=== PATIENT | female | born 1935 | race Caucasian/White ===

== ENCOUNTER 2021-04-18 10:14 | Inpatient (IN) | payer OTHER ==
[2021-04-18] MEDS ORDERED: FENTANYL CITR 100 MCG/2 ML ONE (11:35)
[2021-04-18] MEDS ORDERED: ONDANSETRON 4 MG/2 ML VIAL ONE (11:35)
--- NOTE | 2021-04-18 11:39 | RAD REPORT ---
EXAM DESCRIPTION: RAD - Hip Right 2 View - 04/18/2021 11:32 am CLINICAL HISTORY: PAIN COMPARISON: No comparisons FINDINGS: Displaced right subcapital femoral neck fracture with superior and lateral displacement. N o dislocation. IMPRESSION: Displaced right subcapital femoral neck fracture.
--- NOTE | 2021-04-18 11:55 | RAD REPORT ---
EXAM DESCRIPTION: RAD - Chest Single View - 04/18/2021 11:32 am CLINICAL HISTORY: pre op Chest pain. COMPARISON: No comparisons FINDINGS: Portable technique limits examination quality. The lungs are grossly clear. The heart is normal in size. No displaced fractures. IMPRESSION: No acute intrathoracic process suspected.
[2021-04-18 12:04] LABS: Absolute Lymphocytes (CBC) 0.8 K/uL (0.7-4.9); Basophils % 0.3 % (0-1.3); Hematocrit 40.8 % (36.0-45.0); Lymphocytes % 8.8 % (15.3-44.8); MPV 8.7 fL (7.6-11.3); RBC Red Blood Cell Count 4.42 M/uL (3.86-4.86)
[2021-04-18 12:08] LABS: Protime INR 1.05
[2021-04-18 12:18] LABS: ALT/SGPT 23 U/L (12-78); AST/SGOT 19 U/L (15-37); Albumin 3.4 g/dL (3.4-5.0); Alkaline Phosphatase 80 U/L (45-117); BUN Blood Urea Nitrogen 13 mg/dL (7-18); Bicarbonate 26 mmol/L (21-32); Bilirubin Direct 0.2 mg/dL (0-0.2); Bilirubin Total 0.7 mg/dL (0.2-1.0); Glucose Level 166 mg/dL (74-106); Magnesium 2.1 mg/dL (1.8-2.4); NT PRO-BNP 662 pg/mL (<450); Potassium 3.5 mmol/L (3.5-5.1); Protein, Total 7.5 g/dL (6.4-8.2); Sodium Level 138 mmol/L (136-145); Troponin (Emerg Dept Use Only) < 0.02 ng/mL (0.0-0.045)
--- NOTE | 2021-04-18 12:39 | ER ---
Nurse's Notes [facility] Name: Lissy Jansen Age: 85 yrs Sex: Female : 1935 Arrival Date: 04/18/2021 Time: 10:23 Bed 15 Private MD: Diagnosis: Displaced fracture of base of neck of right femur Presentation: 04/18 10:56 Chief complaint: Patient states: R sided hip pain after falling from standing position ss yesterday. Coronavirus screen: Client denies travel out of the [place] in the last 14 days. Ebola Screen: Patient denies exposure to infectious person. Patient denies travel to an Ebola-affected area in the 21 days before illness onset. Initial Sepsis Screen: Does the patient meet any 2 criteria? No. Patient's initial sepsis screen is negative. Does the patient have a suspected source of infection? No. Patient's initial sepsis screen is negative. Risk Assessment: Do you want to hurt yourself or someone else? Patient reports no desire to harm self or others. Onset of symptoms was April 17, 2021. 10:56 Method Of Arrival: Ambulatory ss 10:56 Acuity: LIDIA 3 ss Historical: - Allergies: 10:57 No Known Allergies; ss - Immunization history:: Adult Immunizations unknown, Client reports having NOT received the Covid vaccine. - Social history:: Smoking status: Patient denies any tobacco usage or history of. Screenin:08 Abuse screen: Denies threats or abuse. Nutritional screening: No deficits noted. vg1 Tuberculosis screening: No symptoms or risk factors identified. Fall Risk Fall in past 12 months (25 points). No secondary diagnosis (0 pts). IV access (20 points). Ambulatory Aid- Crutches/Cane/Walker (15 pts). Gait- Impaired (20 pts.). Mental Status- Oriented to own ability (0 pts). Total Hurley Fall Scale indicates No Risk (0-24 pts). Assessment: 11:08 General: Appears in no apparent distress. uncomfortable, Behavior is calm, cooperative. vg1 Pain: Complains of pain in right hip Pain currently is 6 out of 10 on a pain scale. Pain began 1 day ago. Neuro: Level of Consciousness is awake, alert, obeys commands, Oriented to person, place, time, situation. Cardiovascular: Capillary refill < 3 seconds in bilateral toes Patient's skin is warm and dry. Pulses are palpable in right dorsalis pedis artery and left dorsalis pedis artery. Respiratory: Airway is patent Respiratory effort is even, unlabored. GI: No signs and/or symptoms were reported involving the gastrointestinal system. : No signs and/or symptoms were reported regarding the genitourinary system. EENT: No signs and/or symptoms were reported regarding the EENT system. Derm: Skin is intact, Skin is pink, warm \T\ dry. Musculoskeletal: Range of motion: limited in right hip. 11:55 Reassessment: approximately five minutes after administration of Fentanyl pt O2 DeSat vg1 to 83%. Placed pt on O2 at 2L. Pt now back at 100%. Provider notified. 11:58 Reassessment: Provider at bedside. vg1 13:06 Reassessment: Patient appears in no apparent distress at this time. No changes from vg1 previously documented assessment. Patient and/or family updated on plan of care and expected duration. Pain level reassessed. Patient is alert, oriented x 3, equal unlabored respirations, skin warm/dry/pink. Patient denies pain at this time. 17:31 Reassessment: Spoke with Dr Claudio via phone call to verify about medication order of vg1 Lovenox, per Dr Claudio, stated to hold Lovenox, medication can be administered after sx. 17:48 Reassessment: Patient appears in no apparent distress at this time. Patient and/or vg1 family updated on plan of care and expected duration. Pain level reassessed. Patient is alert, oriented x 3, equal unlabored respirations, skin warm/dry/pink. Denies chest pain, pressure and/or discomfort. 18:14 Reassessment: T4f and TSH blood draw done and sent to lab. vg1 Vital Signs: 11:06 BP 205 / 82; Pulse 85; Resp 16; Temp 98.3; Pulse Ox 100% ; Weight 63.5 kg; Height 4 ft. vg1 10 in. (147.32 cm); Pain 6/10; 11:30 BP 205 / 80; Pulse 78; Resp 20; Pulse Ox 100% on R/A; vg1 12:00 BP 199 / 78; Pulse 75; Resp 14; Pulse Ox 100% on 2 lpm NC; vg1 12:30 BP 196 / 71; Pulse 80; Resp 18; Pulse Ox 100% on 2 lpm NC; vg1 13:00 BP 182 / 75; Pulse 77; Resp 20; Pulse Ox 100% on 2 lpm NC; vg1 13:30 BP 190 / 71; Pulse 76; Resp 16; Pulse Ox 100% ; vg1 14:00 BP 195 / 71; Pulse 78; Resp 22; Pulse Ox 100% ; vg1 14:30 BP 192 / 66; Pulse 87; Resp 16; Pulse Ox 100% ; vg1 15:00 BP 192 / 66; Pulse 87; Resp 16; Pulse Ox 100% ; vg1 15:30 BP 145 / 128; Pulse 80; Resp 18; Pulse Ox 93% ; vg1 16:00 BP 149 / 103; Pulse 140; Resp 20; Pulse Ox 93% ; vg1 16:25 BP 153 / 91; Pulse 146; vg1 16:28 BP 163 / 84; Pulse 146; vg1 16:32 BP 157 / 78; Pulse 131; vg1 16:35 BP 151 / 107; Pulse 140; vg1 16:38 BP 163 / 78; Pulse 123; vg1 16:39 BP 154 / 73; Pulse 116; vg1 16:41 BP 149 / 81; Pulse 121; vg1 16:43 BP 161 / 85; Pulse 130; vg1 16:45 BP 146 / 83; Pulse 121; vg1 17:00 BP 144 / 106; Pulse 116; Resp 18; Pulse Ox 99% ; vg1 17:15 BP 122 / 98; Pulse 119; Resp 22; Pulse Ox 98% ; vg1 17:30 BP 118 / 103; Pulse 128; Resp 24; Pulse Ox 97% ; vg1 17:42 BP 136 / 79; Pulse 129; Resp 18; Pulse Ox 96% ; vg1 17:45 BP 146 / 83; Pulse 120; Resp 20; Pulse Ox 97% ; vg1 18:00 BP 145 / 66; Pulse 111; vg1 18:15 BP 138 / 96; Pulse 104; Resp 22; Pulse Ox 98% ; vg1 18:45 BP 159 / 83; Pulse 111; Resp 20; Pulse Ox 99% ; vg1 19:15 BP 153 / 83; Pulse 92; Resp 22; Pulse Ox 100% ; vg1 20:00 BP 144 / 68; Pulse 104; Resp 20; Temp 98.1; Pulse Ox 99% ; vg1 20:00 BP 144 / 68; Pulse 85; vg1 11:06 Body Mass Index 29.26 (63.50 kg, 147.32 cm) vg1 ED Course: 10:23 Patient arrived in ED. ds1 10:37 Brant Estevez PA is PHCP. jr8 10:37 Gage Yadav MD is Attending Physician. jr8 10:53 Sarah Murillo, RN is Primary Nurse. vg1 10:57 Triage completed. ss 10:57 Arm band placed on right wrist. ss 11:10 Patient has correct armband on for positive identification. Bed in low position. Call vg1 light in reach. Side rails up X2. Adult w/ patient. 11:32 XRAY Hip RIGHT 2 view In Process Unspecified. EDMS 11:32 XRAY Chest (1 view) In Process Unspecified. EDMS 11:38 Inserted saline lock: 22 gauge in right forearm, using aseptic technique. Blood em1 collected. Missed attempt(s): 22 gauge in right wrist. Bleeding controlled, band aid applied, catheter tip intact. 12:37 Sanya Crowder DO is Hospitalizing Provider. jr8 13:48 COVID swab sent to lab. vg1 16:01 Wu cath inserted, using sterile technique, 18 Fr., by ED staff, balloon inflated, to vg1 gravity drainage, urine specimen collected. other Completed by Yuko ANDERSON. 19:11 Primary Nurse role handed off by Sarah Murillo, RN ss 19:33 Sarah Murillo, RN is Primary Nurse. vg1 19:48 No provider procedures requiring assistance completed. Patient admitted, IV remains in vg1 place. Administered Medications: 11:42 Drug: Zofran (Ondansetron) 4 mg Route: IVP; Site: right wrist; vg1 17:25 Follow up: Response: No adverse reaction vg1 11:44 Drug: fentaNYL (PF) 50 mcg Route: IVP; Site: right wrist; vg1 11:59 Follow up: Response: Marked relief of symptoms; Pain is decreased vg1 16:25 Drug: Lopressor (metoprolol) 5 mg Route: IVP; Site: right wrist; vg1 16:31 Drug: Lopressor (metoprolol) 5 mg Route: IVP; Site: right wrist; vg1 16:36 Drug: Lopressor (metoprolol) 5 mg Route: IVP; Site: right wrist; vg1 16:45 Follow up: BP 146 / 83; Pulse 121 bpm vg1 17:43 Drug: Digoxin 0.5 mg Route: IVP; Site: right wrist; vg1 18:00 Follow up: BP 145 / 66; Pulse 111 bpm vg1 18:27 Not Given (Other Intervention Used): Lovenox (enoxaparin) 1 mg/kg Sub-Q once la1 19:03 Drug: Heparin (TN-Bolus No thrombolytic) - HEParin 60 units/kg {Co-Signature: holden (Megan Robin RN).} Route: IVP; Site: right wrist; 20:10 Follow up: Response: No adverse reaction vg1 19:05 Drug: Heparin (TN Drip) 12 units/kg/hr - (HEParin 92205 units, D5W 500 ml) vg1 {Co-Signature: holden (Megan Robin RN).} Route: IV; Rate: calculated rate; Site: right wrist; 20:10 Follow up: IV Status: Infusion continued upon admission vg1 19:07 Drug: Metoprolol 50 mg Route: PO; vg1 20:00 Follow up: BP 144 / 68; Pulse 85 bpm; Response: No adverse reaction vg1 Outcome: 12:38 Decision to Hospitalize by Provider. nikolay 19:47 Admitted to Tele accompanied by tech, via stretcher, room 212, with chart, Report vg1 called to JUSTIN Guzman 19:47 Condition: stable 19:47 Instructed on the need for admit. 20:08 Patient left the ED. vg1 Signatures: Dispatcher [employer] [facility] Adrienne Diggs dsJosue Jovel emCaryn Wright RN RN ss Roszak, Josh, PA PA jr8 Sarah Murillo RN RN vg1 Kavon Orourke SOFTWARE APPLICATIONS [facility] Megan Robin RN, ea Corrections: (The following items were deleted from the chart) 17:26 16:45 Lopressor (metoprolol) 5 mg IVP in right wrist vg1 vg1
--- NOTE | 2021-04-18 12:39 | EDPHYS ---
Physician Documentation [facility] Name: Lissy Jansen Age: 85 yrs Sex: Female : 1935 Arrival Date: 04/18/2021 Time: 10:23 Bed 15 Private MD: ED Physician Gage Yadav HPI: 04/18 12:25 This 85 yrs old Female presents to ER via Ambulatory with complaints of Fall jr8 Injury, Hip Injury. 12:25 Details of fall: The patient fell from an upright position, while standing. Onset: The jr8 symptoms/episode began/occurred acutely, last night. Associated injuries: The patient sustained right leg. Severity of symptoms: At their worst the symptoms were moderate, in the emergency department the symptoms are unchanged. The patient has not experienced similar symptoms in the past. The patient has not recently seen a physician. Stated that she had mechanical fall that was accidental in nature last night. Since then has not been able to ambulate. Patient came in POV by assistance of family. Patient had obvious external rotation or shortening of the right leg.. Historical: - Allergies: 10:57 No Known Allergies; ss - Immunization history:: Adult Immunizations unknown, Client reports having NOT received the Covid vaccine. - Social history:: Smoking status: Patient denies any tobacco usage or history of. ROS: 12:33 Eyes: Negative for injury, pain, redness, and discharge, ENT: Negative for injury, jr8 pain, and discharge, Neck: Negative for injury, pain, and swelling, Cardiovascular: Negative for chest pain, palpitations, and edema, Respiratory: Negative for shortness of breath, cough, wheezing, and pleuritic chest pain, Abdomen/GI: Negative for abdominal pain, nausea, vomiting, diarrhea, and constipation, Back: Negative for injury and pain, Skin: Negative for injury, rash, and discoloration, Neuro: Negative for headache, weakness, numbness, tingling, and seizure. 12:33 MS/extremity: Positive for decreased range of motion, pain, tenderness, of the right leg. Exam: 12:33 Constitutional: This is a well developed, well nourished patient who is awake, alert, jr8 and in no acute distress. Neck: Trachea midline, no thyromegaly or masses palpated, and no cervical lymphadenopathy. Supple, full range of motion without nuchal rigidity, or vertebral point tenderness. No Meningismus. Cardiovascular: Regular rate and rhythm with a normal S1 and S2. No gallops, murmurs, or rubs. Normal PMI, no JVD. No pulse deficits. Respiratory: Lungs have equal breath sounds bilaterally, clear to auscultation and percussion. No rales, rhonchi or wheezes noted. No increased work of breathing, no retractions or nasal flaring. Abdomen/GI: Soft, non-tender, with normal bowel sounds. No distension or tympany. No guarding or rebound. No evidence of tenderness throughout. Back: No spinal tenderness. No costovertebral tenderness. Full range of motion. Skin: Warm, dry with normal turgor. Normal color with no rashes, no lesions, and no evidence of cellulitis. Neuro: Awake and alert, GCS 15, oriented to person, place, time, and situation. Cranial nerves II-XII grossly intact. Motor strength 5/5 in all extremities. Sensory grossly intact. 12:33 Musculoskeletal/extremity: Extremities: grossly normal except: noted in the right leg: Patient has externally rotated right leg with about 2 inches of shortening noted. 2+ pedal and posterior tibial pulses present with normal sensation. Patient able to flex and extend foot and can wiggle toes without any problem. Decreased range of motion to hip secondary to obvious deformity. Rest of extremities unremarkable.. Vital Signs: 11:06 BP 205 / 82; Pulse 85; Resp 16; Temp 98.3; Pulse Ox 100% ; Weight 63.5 kg; Height 4 ft. vg1 10 in. (147.32 cm); Pain 6/10; 11:30 BP 205 / 80; Pulse 78; Resp 20; Pulse Ox 100% on R/A; vg1 12:00 BP 199 / 78; Pulse 75; Resp 14; Pulse Ox 100% on 2 lpm NC; vg1 12:30 BP 196 / 71; Pulse 80; Resp 18; Pulse Ox 100% on 2 lpm NC; vg1 13:00 BP 182 / 75; Pulse 77; Resp 20; Pulse Ox 100% on 2 lpm NC; vg1 13:30 BP 190 / 71; Pulse 76; Resp 16; Pulse Ox 100% ; vg1 14:00 BP 195 / 71; Pulse 78; Resp 22; Pulse Ox 100% ; vg1 14:30 BP 192 / 66; Pulse 87; Resp 16; Pulse Ox 100% ; vg1 15:00 BP 192 / 66; Pulse 87; Resp 16; Pulse Ox 100% ; vg1 15:30 BP 145 / 128; Pulse 80; Resp 18; Pulse Ox 93% ; vg1 16:00 BP 149 / 103; Pulse 140; Resp 20; Pulse Ox 93% ; vg1 16:25 BP 153 / 91; Pulse 146; vg1 16:28 BP 163 / 84; Pulse 146; vg1 16:32 BP 157 / 78; Pulse 131; vg1 16:35 BP 151 / 107; Pulse 140; vg1 16:38 BP 163 / 78; Pulse 123; vg1 16:39 BP 154 / 73; Pulse 116; vg1 16:41 BP 149 / 81; Pulse 121; vg1 16:43 BP 161 / 85; Pulse 130; vg1 16:45 BP 146 / 83; Pulse 121; vg1 17:00 BP 144 / 106; Pulse 116; Resp 18; Pulse Ox 99% ; vg1 17:15 BP 122 / 98; Pulse 119; Resp 22; Pulse Ox 98% ; vg1 17:30 BP 118 / 103; Pulse 128; Resp 24; Pulse Ox 97% ; vg1 17:42 BP 136 / 79; Pulse 129; Resp 18; Pulse Ox 96% ; vg1 17:45 BP 146 / 83; Pulse 120; Resp 20; Pulse Ox 97% ; vg1 18:00 BP 145 / 66; Pulse 111; vg1 18:15 BP 138 / 96; Pulse 104; Resp 22; Pulse Ox 98% ; vg1 18:45 BP 159 / 83; Pulse 111; Resp 20; Pulse Ox 99% ; vg1 19:15 BP 153 / 83; Pulse 92; Resp 22; Pulse Ox 100% ; vg1 20:00 BP 144 / 68; Pulse 104; Resp 20; Temp 98.1; Pulse Ox 99% ; vg1 20:00 BP 144 / 68; Pulse 85; vg1 11:06 Body Mass Index 29.26 (63.50 kg, 147.32 cm) vg1 MDM: 10:37 Patient medically screened. 8 12:33 Data reviewed: vital signs, nurses notes, lab test result(s), EKG, radiologic studies, jr8 plain films. Data interpreted: Pulse oximetry: on room air is 100 %. Interpretation: normal. Counseling: I had a detailed discussion with the patient and/or guardian regarding: the historical points, exam findings, and any diagnostic results supporting the discharge/admit diagnosis, lab results, the need for further work-up and treatment in the hospital. ED course: Dr. Hernández consulted and plans to take patient to surgery this evening. Patient has remained n.p.o. since last night. Patient denies any blood thinners.. 04/18 10:50 Order name: CBC with Diff; Complete Time: 12:32 8 04/18 10:50 Order name: Basic Metabolic Panel; Complete Time: 12:32 8 04/18 10:50 Order name: Protime (+inr); Complete Time: 12:32 8 04/18 10:50 Order name: Ptt, Activated; Complete Time: 12:8 04/18 10:50 Order name: LFT's; Complete Time: 12:32 04/18 10:50 Order name: Magnesium; Complete Time: 12:32 8 04/18 10:50 Order name: NT PRO-BNP; Complete Time: 12:32 8 04/18 10:50 Order name: Troponin (emerg Dept Use Only); Complete Time: 12:32 04/18 12:39 Order name: COVID-19 : Document "Date of Symptom Onset" if Symptomatic. bd 04/18 16:00 Order name: SARS-COV-2 RT PCR; Complete Time: 16:25 EDMS 04/18 16:05 Order name: Urine Dipstick-Ancillary; Complete Time: 16:25 EDMS 04/18 17:00 Order name: TSH 04/18 17:00 Order name: T4 Free 04/18 17:36 Order name: Lipid Profile; Complete Time: 17:41 EDMS 04/18 10:50 Order name: XRAY Hip RIGHT 2 view; Complete Time: 11:54 8 04/18 10:50 Order name: XRAY Chest (1 view); Complete Time: 12:32 jr8 04/18 10:50 Order name: EKG; Complete Time: 10:51 jr8 04/18 10:50 Order name: Cardiac monitoring; Complete Time: 11:33 jr8 04/18 10:50 Order name: EKG - Nurse/Tech; Complete Time: 11:33 jr8 04/18 18:53 Order name: T4 Free; Complete Time: 19:21 EDID 04/18 18:53 Order name: Thyroid Stimulating Hormone; Complete Time: 19:21 EDID 04/18 18:59 Order name: Hemoglobin A1c; Complete Time: 19:21 [facility] 04/18 10:50 Order name: IV Saline Lock; Complete Time: 11:35 [facility] 04/18 10:50 Order name: Labs collected and sent; Complete Time: 11: [facility] 04/18 10:50 Order name: O2 Per Protocol; Complete Time: : [facility] 04/18 10:50 Order name: O2 Sat Monitoring; Complete Time: : [facility] Administered Medications: 11:42 Drug: Zofran (Ondansetron) 4 mg Route: IVP; Site: right wrist; vg1 17:25 Follow up: Response: No adverse reaction vg1 11:44 Drug: fentaNYL (PF) 50 mcg Route: IVP; Site: right wrist; vg1 11:59 Follow up: Response: Marked relief of symptoms; Pain is decreased vg1 16:25 Drug: Lopressor (metoprolol) 5 mg Route: IVP; Site: right wrist; vg1 16:31 Drug: Lopressor (metoprolol) 5 mg Route: IVP; Site: right wrist; vg1 16:36 Drug: Lopressor (metoprolol) 5 mg Route: IVP; Site: right wrist; vg1 16:45 Follow up: BP 146 / 83; Pulse 121 bpm vg1 17:43 Drug: Digoxin 0.5 mg Route: IVP; Site: right wrist; vg1 18:00 Follow up: BP 145 / 66; Pulse 111 bpm vg1 18:27 Not Given (Other Intervention Used): Lovenox (enoxaparin) 1 mg/kg Sub-Q once la1 19:03 Drug: Heparin ([place]-Bolus No thrombolytic) - HEParin 60 units/kg {Co-Signature: holden (Megan Robin RN).} Route: IVP; Site: right wrist; 20:10 Follow up: Response: No adverse reaction vg1 19:05 Drug: Heparin ([place] Drip) 12 units/kg/hr - (HEParin 31785 units, D5W 500 ml) vg1 {Co-Signature: holden (Megan Robin RN).} Route: IV; Rate: calculated rate; Site: right wrist; 20:10 Follow up: IV Status: Infusion continued upon admission vg1 19:07 Drug: Metoprolol 50 mg Route: PO; vg1 20:00 Follow up: BP 144 / 68; Pulse 85 bpm; Response: No adverse reaction vg1 Disposition: 04/19 07:30 Co-signature as Attending Physician, Gage Yadav MD I agree with the assessment and eliezer plan of care. Disposition Summary: 04/18/21 12:38 Hospitalization Ordered Hospitalization Status: Inpatient Admission jr8 Provider: Sanya Crowder jr8 Location: Telemetry/MedSurg (Inpatient) jr8 Condition: Stable jr8 Problem: new jr8 Symptoms: have improved jr8 Bed/Room Type: [facility] Room Assignment: 212(04/18/21 18:37) Diagnosis - Displaced fracture of base of neck of right femur jr8 Forms: - Medication Reconciliation Form jr8 - SBAR form jr8 Signatures: Dispatcher [employer] Myla Mclaughlin, RN Gage Perla MD MD cha Smirch, Shelby, RN Brant Bradford PA PA jr8 Kavon Orourke, MODELING AGENT-C MODELING AGENT-Cla1 Sarah Murillo RN JUSTIN 1 Megan Robin RN, ea Corrections: (The following items were deleted from the chart) 04/18 12:33 12:25 Stated that she . jr8 jr8 18:37 12:38 jr8 dw
[2021-04-18 16:04] LABS: Urine Blood Trace-intact (Negative); Urine Glucose Negative (Negative); Urine Protein Negative (Negative)
[2021-04-18] MEDS ORDERED: LABETALOL 20 MG/4ML SYRINGE IV PRN (16:30)
[2021-04-18] MEDS ORDERED: MORPHINE 4 MG/ML SYR IV PRN ×2 (16:31→18:38)
[2021-04-18] MEDS ORDERED: ACETAMINOPHEN 650MG/RECT SUPP PR PRN (16:32)
[2021-04-18] MEDS ORDERED: ONDANSETRON 4 MG/2 ML VIAL IV PRN (16:32)
--- NOTE | 2021-04-18 16:37 | P.HP ---
Certification for Inpatient Patient admitted to: Inpatient With expected LOS: >2 Midnights Patient will require the following post-hospital care: None Practitioner: I am a practitioner with admitting privileges, knowledge of patient current condition, hospital course, and medical plan of care. Services: Services provided to patient in accordance with Admission requirements found in Title 42 Section 412.3 of the Code of Federal Regulations Patient History Date of Service: 04/19/21 Reason for admission: Right Femoral neck fracture History of Present Illness: Patient is an 85-year-old female with a past medical history significant for osteoarthritis who presents with complaint of fall which occurred yesterday. Patient reported that she was in an upright position and as she was about to turn, she fell accidentally. She landed on her right side. Patient denies hitting her head or losing consciousness. Patient reported that she felt pain in her right hip. Patient rated pain as 10\10 in severity and described pain as sharp in quality. Patient reported that she was unable to bear weight or ambulate. Patient denies any other signs or symptoms. Symptoms are aggravated by relieved by nothing. Patient decided to present to the hospital for medical evaluation. Of note, Patient has not seen a doctor in a couple of years. Allergies No Known Allergies Allergy (Verified 08/19/16 11:34) Home medications list reviewed: Yes Home Medications: Vit A/Vit C/Vit E/Zinc/Copper [Icaps Areds Formula Dr Tablet] 2 each PO DAILY 08/14/16 - Past Medical/Surgical History Past Medical History: Reviewed- Non-Contributory Past Surgical History: Reviewed- Non-Contributory - Family History Father -: Other (see notes) Notes: alcoholism Mother -: Other (see notes) Notes: alcoholism - Social History Smoking Status: Never smoker Alcohol use: No CD- Drugs: No Caffeine use: No Place of Residence: Home Review of Systems General: Unremarkable Eyes: Unremarkable ENT: Unremarkable Respiratory: Unremarkable Cardiovascular: Unremarkable Gastrointestinal: Unremarkable Genitourinary: Unremarkable Musculoskeletal: Other (Right hip pain ) Integumentary: Unremarkable Neurological: Unremarkable Lymphatics: Unremarkable Physical Examination - Physical Exam General: Alert, In no apparent distress, Oriented x3 HEENT: Atraumatic, PERRLA, Mucous membr. moist/pink, EOMI, Sclerae nonicteric Neck: Supple, 2+ carotid pulse no bruit, No LAD, Without JVD or thyroid abnormality Respiratory: Clear to auscultation bilaterally, Normal air movement Cardiovascular: Regular rate/rhythm, Normal S1 S2 Capillary refill: <2 Seconds Gastrointestinal: Normal bowel sounds, No tenderness Musculoskeletal: No clubbing, Tenderness (Right hip) Integumentary: No rashes Neurological: Normal gait, Normal speech, Normal tone, Normal affect Lymphatics: No axilla or inguinal lymphadenopathy External genitalia: Deferred Rectal: Deferred - Studies Laboratory Data (last 24 hrs) 04/18/21 11:47: PT 12.1, INR 1.05, APTT 26.3 04/18/21 11:47: Sodium 138, Potassium 3.5, BUN 13, Creatinine 0.70, Glucose 166 H, Magnesium 2.1, Total Bilirubin 0.7, AST 19, ALT 23, Alkaline Phosphatase 80 04/18/21 11:47: WBC 8.70, Hgb 14.0, Hct 40.8, Plt Count 167 Assessment and Plan - Plan --Right femoral neck fracture. As noted on x-ray. Orthopedic surgeon bradley vincent. Plans to take patient to the OR later today. Will await further recommendation from orthopedic surgeon. --Acute pain. We will manage pain with current pain medication regimen. --A. fib with RVR. No noted history of A. fib. It Specialist consulted. Echocardiogram pending. It Specialist recommends placing patient on digoxin and Lovenox subQ. --Elevated blood pressure. We will manage blood pressure with metoprolol as needed. --CKD 2. Baseline functions unknown. We will continue to monitor renal functions. --Dyslipidemia. Further management per patient's PCP outpatient. --Elevated BNP. Echocardiogram pending to assess LV\valvular function and wall motion. Will reassess BNP in a.m. --DVT prophylaxis with scd. Continue Lovenox subQ after the surgery. Documentation of Current Medications in the Medical Record - 18+ years old: Code: G8427 - current medications obtained, updated, or reviewed. Pain Assessment and Follow-Up - 18+ years old: Code: G8730 - pain assessment positive with standardized tool AND a follow up plan is documented. I have had discussion about advanced directives with the patient during this hospital admission. Addressed code status and /or goals of care. Spent more than 15 minutes. Case discussed withpatient and nurse. Discharge Plan: Home Plan to discharge in: 48 Hours - Advance Directives Does patient have a Living Will: No Does patient have a Durable POA for Healthcare: No - Code Status/Comfort Care Code Status Assessed: Yes Code Status: Full Code Physician Review: Patient Assessed, Agree with Above Assessment and Plan Critical Care: No
[2021-04-18] MEDS ORDERED: METOPROLOL TARTRATE 5 MG/5 ML INJ IV ONE ×2 (16:43→16:53)
[2021-04-18] MEDS ORDERED: TRANEXAMIC ACID 1,000 MG in NA CHLORIDE 0.9% 50 ML IV ONE (17:00)
[2021-04-18] MEDS ORDERED: METOPROLOL TARTRATE 5 MG/5 ML INJ IV PRN ×2 (17:21→17:25)
[2021-04-18] MEDS ORDERED: DIGOXIN 0.25 MG/ML AMP ONE (18:00)
[2021-04-18 18:53] LABS: Thyroid Stimulating Hormone 0.581 uIU/mL (0.360-3.740)
[2021-04-18] MEDS ORDERED: HEPARIN/D5W 25,000 UNIT/500 ML BAG IV SCH ×2 (19:00→22:00)
[2021-04-18] MEDS ORDERED: HEPARIN/D5W 25,000 UNIT/500 ML BAG IV ONE (19:09)
[2021-04-18] MEDS ORDERED: METOPROLOL TAR 50 MG TAB ONE (19:17)
[2021-04-18] MEDS ORDERED: ENOXAPARIN 60 MG/0.6 ML SQ SCH (20:00)
[2021-04-18 22:25] VITALS: BMI 28.9
[2021-04-18] MEDS: DIGOXIN 0.25 MG/ML AMP IV SCH (23:30)
[2021-04-19 04:15] LABS: Absolute Lymphocytes (CBC) 1.2 K/uL (0.7-4.9); Basophils % 0.2 % (0-1.3); Hematocrit 40.4 % (36.0-45.0); Lymphocytes % 11.5 % (15.3-44.8); MPV 8.8 fL (7.6-11.3); RBC Red Blood Cell Count 4.36 M/uL (3.86-4.86)
[2021-04-19] MEDS: HYDRALAZINE HCL 20 MG/ML VIAL IV PRN (06:18)
[2021-04-19] MEDS: VIT C PO SCH (09:00)
[2021-04-19] MEDS ORDERED: POTASSIUM PHOS IN 0.9 % NACL 15 MMOL/250 ML BAG IV ONE (09:00)
[2021-04-19] MEDS: ZINC PO SCH (09:00)
[2021-04-19] MEDS: METOPROLOL TAR 50 MG TAB PO SCH ×2 (09:00→22:14)
[2021-04-19] MEDS ORDERED: DIGOXIN 0.25 MG TABLET PO SCH (09:00)
[2021-04-19] MEDS: VIT A PO SCH (09:00)
[2021-04-19] MEDS: VIT E PO SCH (09:00)
[2021-04-19] MEDS: [UNRECOGNIZED DRUG - OTHER] PO SCH (09:00)
[2021-04-19] MEDS: COPPER PO SCH (09:00)
--- NOTE | 2021-04-19 09:30 | P.PN ---
Subjective Date of Service: 04/19/21 Chief Complaint: Right Femoral neck fracture Subjective: Improving (feeling better today, pain more controlled. converted back to sinus rhythm last night. no events on telemetry. on hep drip) Review of Systems 10-point ROS is otherwise unremarkable Physical Examination - Vital Signs Temperature: 99.1 F Blood Pressure: 167/68 Pulse: 85 Respirations: 18 Pulse Ox (%): 96 - Studies Laboratory Data (last 24 hrs) 04/18/21 11:47: Triglycerides 80, Cholesterol 264 H, HDL Cholesterol 67 H, Cholesterol/HDL Ratio 3.94 04/18/21 11:47: PT 12.1, INR 1.05, APTT 26.3 04/18/21 11:47: Sodium 138, Potassium 3.5, BUN 13, Creatinine 0.70, Glucose 166 H, Magnesium 2.1, Total Bilirubin 0.7, AST 19, ALT 23, Alkaline Phosphatase 80 04/18/21 11:47: WBC 8.70, Hgb 14.0, Hct 40.8, Plt Count 167 Assessment & Plan Physician Review Additional Text: Physical Exam Gen: NAD, AAOx3 HEENT: normal conjunctiva, sclera anicteric CV: regular rate/rhythm, no murmur Pulm: clear bilaterally, nonlabored on RA Abd: soft, NTND Msk: R hip tenderness, pain with movement Skin: no rash Problem List R femoral neck fracture s/p mechanical fall new diagnosis of Afib with RVR Hypertension -ortho consulted, for OR today -afib w/ RVR - pt denies history, did not have pain/palpitations during episode yesterday -converted s/p lopressor and dig -cardio consulted, continue lopressor -on hep drip until surgery -patient is medically optimized for surgery at this time -echo pending to eval LA size/dilation Code: full Dispo: anticipate dc in ~3 days, pending PT eval, function Time Spent Managing Pts Care (In Minutes): 35
--- NOTE | 2021-04-19 14:04 | ECHO ---
HEIGHT: 4 ft 10 in WEIGHT: 138 lb 9 oz DATE OF STUDY: 04/19/[address]: Diya Hancock 2-DIMENSIONAL: YES M.MODE: YES DOPPLER: YES COLOR FLOW: YES TDS: PORTABLE: DEFINITY: BUBBLE STUDY: DIAGNOSIS: ATRIAL FIBRILLATION WITH RAPID VENTRICULAR RESPONSE CARDIAC HISTORY: CATHERIZATION: SURGERY: PROSTHETIC VALVE: PACEMAKER: MEASUREMENTS (cm) DIASTOLIC (NORMALS) SYSTOLIC (NORMALS) IVSd 1.0 (0.6-1.2) LA Diam 3.3 (1.9-4.0) LVEF 60-65% LVIDd 4.5 (3.5-5.7) LVIDs 2.5 (2.0-3.5) %FS 44% LVPWd 1.1 (0.6-1.2) Ao Diam 2.8 (2.0-3.7) 2 DIMENSIONAL ASSESSMENT: RIGHT ATRIUM: NORMAL LEFT ATRIUM: NORMAL RIGHT VENTRICLE: NORMAL LEFT VENTRICLE: NORMAL TRICUSPID VALVE: MILD TRICUSPID REGURGITATION MITRAL VALVE: MILD MITRAL REGURGITATION PULMONIC VALVE: MILD PULMONIC INSUFFIENCY AORTIC VALVE: MILD AORTIC INSUFFIENCY PERICARDIAL EFFUSION: NONE AORTIC ROOT: NORMAL LEFT VENTRICULAR WALL MOTION: NORMAL DOPPLER/COLOR FLOW: SEE BELOW COMMENTS: NORMAL LEFT VENTRICULAR EJECTION FRACTION 60-65%. NORMAL WALL MOTION. MILD MITRAL REGURGITATION, MILD TRICUSPID REGURGITATION, MILD AORTIC INSUFFIENCY, MILD PULMONIC INSUFFIENCY. TECHNOLOGIST: OJ BERMUDEZ
[2021-04-19 16:11] LABS: Absolute Lymphocytes (CBC) 1.3 K/uL (0.7-4.9); Basophils % 0.5 % (0-1.3); Hematocrit 39.4 % (36.0-45.0); Lymphocytes % 16.3 % (15.3-44.8); RBC Red Blood Cell Count 4.23 M/uL (3.86-4.86)
[2021-04-19 16:21] LABS: Protime INR 1.11
[2021-04-19] MEDS: Ringers Lactate 1,000 ML IV ONE (17:00)
[2021-04-19] MEDS ORDERED: SUCCINYLCHOLINE 20 MG/ML (10 ML) IV ONE (17:24)
[2021-04-19] MEDS ORDERED: FENTANYL CITR 100 MCG/2 ML ONE (17:29)
[2021-04-19] MEDS ORDERED: propofoL 200 MG/20 ML VIAL IV ONE ×4 (17:29→19:02)
[2021-04-19] MEDS ORDERED: ROCURONIUM 50 MG/5 ML VIAL IV ONE (17:29)
[2021-04-19] MEDS ORDERED: CEFAZOLIN/SWI 1gm 0 GM/0 ML SYR ONE (17:34)
--- NOTE | 2021-04-19 18:48 | CON ---
Preoperative Diagnosis: Right femoral neck fracture. History Of Present Illness: Ms. Jansen sustained a fall in her home. She is quite spry and live s alone and takes no medications routinely at home. She sustained a mechanical fall resulting in a r ight femoral neck fracture. We were asked to evaluate her and treat her for this. Past Medical History: Significant for as above. Medications: She has no medications. Allergies: NO KNOWN DRUG ALLERGIES. Laboratory Data: X-rays reveal a right displaced right femoral neck fracture. Assessment And Plan: She will require right hemiarthroplasty. She will need cardiac clearance due t o her age and concerns. After this, we will take her to the operative suite for a right hip hemiarth roplasty. THAO/ESA Voice ID: [id number] Report ID: [id number]
[2021-04-19] MEDS: LABETALOL 20 MG/4ML SYRINGE IV ONE ×2 (19:17→19:53)
[2021-04-19] MEDS ORDERED: GLYCOPYRROLATE 0.2 MG/ML SYR ONE (19:27)
[2021-04-19] MEDS ORDERED: NEOSTIGMINE 1 MG/ML -5 ML ONE (19:28)
[2021-04-19] MEDS ORDERED: MORPHINE 4 MG/ML SYR IV PRN (20:15)
[2021-04-19] MEDS ORDERED: Ringers Lactate 1,000 ML IV ONE (20:15)
--- NOTE | 2021-04-19 20:24 | OP ---
Surgeon: Clarence Hernández MD Preoperative Diagnosis: Right hip femoral neck fracture. Postoperative Diagnosis: Right hip femoral neck fracture. Procedure Performed: Right hip hemiarthroplasty. Geophysical Observer: None. Anesthesia: General. Estimated Blood Loss: 15 mL. Complications: None. Disposition: Recovery room, stable. Procedure In Detail: The patient was taken to the operative suite, placed in supine position, induce d anesthesia. Right hip was prepped and draped in the usual sterile fashion and placed in lateral po sition. Posterior approach to the hip was utilized. External rotators tagged for later reattachment . A 44 femoral sokaogon head was delivered. Osteotomized 1 fingerbreadth above the lesser trochanter. Serial prosthesis. Trial was a neutral head. Excellent balance, range of mo tion, and stability was achieved. Permanent implants were placed followed by a layered closure inclu ding repair of external rotators. The patient is being reversed to Anesthesia and should be in the r ecovery room shortly. BHASKAR Voice ID: [id number] Report ID: [id number]
[2021-04-19] MEDS: NACHLORIDE 0.45% 1,000 ML IV SCH (21:00)
--- NOTE | 2021-04-19 21:00 | RAD REPORT ---
EXAM DESCRIPTION: RAD - Pelvis - 04/19/2021 8:06 pm CLINICAL HISTORY: S/P R HIP BIPOLAR ARTHROPLASTY COMPARISON: Hip Right 2 View dated 04/18/2021 FINDINGS: Right bipolar prosthesis has been placed. Femoral and acetabular components are in good po sition. [place] bone shows no unexpected finding.
[2021-04-19] MEDS: DOCUSATE NA 100 MG CAP PO SCH (22:14)
[2021-04-19] MEDS: DIGOXIN 0.25 MG/ML AMP IV SCH (23:00)
[2021-04-20] MEDS: HYDRALAZINE HCL 20 MG/ML VIAL IV PRN ×2 (00:46→17:12)
[2021-04-20] MEDS ORDERED: CEFAZOLIN/NS 1gm 1 GM/50 ML BAG IVPB SCH (01:00)
[2021-04-20] MEDS: CEFAZOLIN/SWI 1gm 1 GM/10 ML SYR IV SCH ×2 (01:39→09:22)
[2021-04-20] MEDS: NACHLORIDE 0.45% 1,000 ML IV SCH ×3 (01:40→22:48)
[2021-04-20] MEDS ORDERED: CEFAZOLIN/SWI 1gm 1 GM/10 ML SYR ONE (01:51)
[2021-04-20 05:58] LABS: Absolute Lymphocytes (CBC) 1.1 K/uL (0.7-4.9); Basophils % 0.4 % (0-1.3); Hematocrit 36.4 % (36.0-45.0); Lymphocytes % 10.9 % (15.3-44.8); MPV 9.2 fL (7.6-11.3)
[2021-04-20 06:11] LABS: BUN Blood Urea Nitrogen 17 mg/dL (7-18); Bicarbonate 25 mmol/L (21-32); Glucose Level 141 mg/dL (74-106); Potassium 3.6 mmol/L (3.5-5.1); Sodium Level 137 mmol/L (136-145)
[2021-04-20] MEDS ORDERED: POTASSIUM PHOS IN 0.9 % NACL 15 MMOL/250 ML BAG IV ONE ×2 (07:23→09:00)
[2021-04-20] MEDS ORDERED: POTASS/SODIUM PHOSPHATE 1 PKT POWD.PACK PO SCH (07:30)
[2021-04-20] MEDS: [UNRECOGNIZED DRUG - OTHER] PO SCH (09:00)
[2021-04-20] MEDS: VIT C PO SCH (09:00)
[2021-04-20] MEDS: ZINC PO SCH (09:00)
[2021-04-20] MEDS: VIT A PO SCH (09:00)
[2021-04-20] MEDS: COPPER PO SCH (09:00)
[2021-04-20] MEDS ORDERED: POTASSIUM 25 MEQ EFFERV TAB PO ONE (09:00)
[2021-04-20] MEDS: VIT E PO SCH (09:00)
[2021-04-20] MEDS: METOPROLOL TAR 50 MG TAB PO SCH ×2 (09:22→22:49)
[2021-04-20] MEDS: DOCUSATE NA 100 MG CAP PO SCH ×2 (09:22→21:00)
[2021-04-20] MEDS: lisinopriL 10 MG TAB PO SCH (09:22)
[2021-04-20] MEDS: ENOXAPARIN 30 MG/0.3 ML SQ SCH ×2 (09:22→22:49)
--- NOTE | 2021-04-20 10:22 | P.PN ---
Subjective Date of Service: 04/20/21 Chief Complaint: Right Femoral neck fracture Subjective: Improving (feeling ok today, some pain in R hip with movement, tolerating soft food but difficult without dentures. +flatus) Review of Systems 10-point ROS is otherwise unremarkable Physical Examination - Vital Signs Temperature: 98.9 F Blood Pressure: 177/74 Pulse: 87 Respirations: 18 Pulse Ox (%): 96 Assessment & Plan Physician Review Additional Text: Physical Exam Gen: NAD, AAOx3 HEENT: normal conjunctiva, sclera anicteric CV: regular rate/rhythm, no murmur Pulm: clear bilaterally, nonlabored on RA Abd: soft, NTND Ext: surgical dressing in place over R hip, drain in place, no hematoma palpated : sin in place Problem List R femoral neck fracture s/p mechanical fall; s/p repair 04/19 new diagnosis of Afib with RVR Hypertension -ortho consulted, s/p repair on 04/19 -afib w/ RVR - pt denies history, did not have pain/palpitations during episode; -converted s/p lopressor and dig -cardio consulted, continue lopressor -lovenox ordered -echo pending to eval LA size/dilation -PT consulted -hypertensive, add lisinopril, pain control Code: full Dispo: anticipate dc in ~2-3 days, pending PT eval, function; will likely need SNF Time Spent Managing Pts Care (In Minutes): 35
[2021-04-20] MEDS: HYDROCODONE/APAP 5/325 MG TAB PO PRN ×2 (15:46→22:50)
[2021-04-21] MEDS: HYDROCODONE/APAP 5/325 MG TAB PO PRN ×3 (05:30→17:15)
[2021-04-21] MEDS: HYDRALAZINE HCL 20 MG/ML VIAL IV PRN (05:31)
[2021-04-21 06:48] LABS: BUN Blood Urea Nitrogen 21 mg/dL (7-18); Bicarbonate 25 mmol/L (21-32); Glucose Level 147 mg/dL (74-106); Phosphorus 1.9 mg/dL (2.5-4.9); Potassium 3.8 mmol/L (3.5-5.1); Sodium Level 134 mmol/L (136-145)
[2021-04-21] MEDS: VIT A PO SCH (09:00)
[2021-04-21] MEDS: COPPER PO SCH (09:00)
[2021-04-21] MEDS: [UNRECOGNIZED DRUG - OTHER] PO SCH (09:00)
[2021-04-21] MEDS ORDERED: POTASSIUM 25 MEQ EFFERV TAB PO ONE (09:00)
[2021-04-21] MEDS: ZINC PO SCH (09:00)
[2021-04-21] MEDS: VIT C PO SCH (09:00)
[2021-04-21] MEDS: VIT E PO SCH (09:00)
[2021-04-21] MEDS: ENOXAPARIN 30 MG/0.3 ML SQ SCH ×2 (09:00→21:22)
[2021-04-21] MEDS: DOCUSATE NA 100 MG CAP PO SCH ×2 (10:58→21:24)
[2021-04-21] MEDS: lisinopriL 10 MG TAB PO SCH (10:58)
[2021-04-21] MEDS: METOPROLOL TAR 50 MG TAB PO SCH ×2 (10:59→21:24)
--- NOTE | 2021-04-21 12:23 | P.PN ---
Subjective Date of Service: 04/21/21 Chief Complaint: Right Femoral neck fracture Subjective: No C/O voiced, Tolerating diet, Ambulating, Doing well (N-V intact placement underway labs okay) Physical Examination - Vital Signs Temperature: 97.9 F Blood Pressure: 135/59 Pulse: 60 Respirations: 16 Pulse Ox (%): 99 Assessment And Plan Physician Review: Patient Assessed, Agree with Above Assessment and Plan Physician Review Additional Text: Physical Exam Gen: NAD, AAOx3 HEENT: normal conjunctiva, sclera anicteric CV: regular rate/rhythm, no murmur Pulm: clear bilaterally, nonlabored on RA Abd: soft, NTND Ext: surgical dressing in place over R hip, drain in place, no hematoma palpated : sin in place Problem List R femoral neck fracture s/p mechanical fall; s/p repair 04/19 new diagnosis of Afib with RVR Hypertension -ortho consulted, s/p repair on 04/19 -afib w/ RVR - pt denies history, did not have pain/palpitations during episode; -converted s/p lopressor and dig -cardio consulted, continue lopressor -lovenox ordered -echo pending to eval LA size/dilation -PT consulted -hypertensive, add lisinopril, pain control Code: full Dispo: anticipate dc in ~2-3 days, pending PT eval, function; will likely need SNF
--- NOTE | 2021-04-21 13:22 | P.PN ---
Subjective Date of Service: 04/21/21 Chief Complaint: Right Femoral neck fracture Subjective: Improving (tolerating diet, no nausea/vomiting, +flatus, working with PT - currently max assist x2. pain with movement) Review of Systems 10-point ROS is otherwise unremarkable Physical Examination - Vital Signs Temperature: 97.9 F Blood Pressure: 135/59 Pulse: 60 Respirations: 16 Pulse Ox (%): 99 Assessment & Plan Physician Review Additional Text: Physical Exam Gen: NAD, AAOx3 HEENT: normal conjunctiva, sclera anicteric CV: regular rate/rhythm, no murmur Pulm: clear bilaterally, nonlabored on RA Abd: soft, NTND Ext: surgical dressing in place over R hip, drain in place, no hematoma palpated : sin in place Problem List R femoral neck fracture s/p mechanical fall; s/p repair 04/19 new diagnosis of Afib with RVR, resolved Hypertension -ortho consulted, s/p repair on 04/19 -afib w/ RVR - pt denies history, did not have pain/palpitations during episode -converted s/p lopressor and dig on day of admission -cardio consulted, continue lopressor, echo done: no significant findings -lovenox ordered per ortho -PT consulted -hypertensive, BP improved with addition of lisinopril on 04/20, does seem to be worse when in pain as well Code: full VTE: lovenox Dispo: anticipate dc in ~2-3 days, will need SNF older adult social work specialist consulted Time Spent Managing Pts Care (In Minutes): 35
[2021-04-22] MEDS: HYDRALAZINE HCL 20 MG/ML VIAL IV PRN (04:16)
[2021-04-22] MEDS: HYDROCODONE/APAP 5/325 MG TAB PO PRN ×3 (04:16→18:17)
[2021-04-22 06:04] LABS: Hematocrit 33.3 % (36.0-45.0); RBC Red Blood Cell Count 3.58 M/uL (3.86-4.86)
[2021-04-22 06:17] LABS: BUN Blood Urea Nitrogen 15 mg/dL (7-18); Bicarbonate 28 mmol/L (21-32); Glucose Level 141 mg/dL (74-106); Magnesium 2.1 mg/dL (1.8-2.4); Potassium 4.1 mmol/L (3.5-5.1); Sodium Level 135 mmol/L (136-145)
--- NOTE | 2021-04-22 08:36 | CON ---
Date of Consultation: 04/19/2021 Reason For Consultation: Atrial fibrillation, hip fracture, and cardiac clearance. History Of Present Illness: The patient is an 85-year-old, came in with a fall injury, was found to have hip fracture. She was hypertensive with blood pressure of 205/82. When she got admitted and e was noted to be in atrial fibrillation where a rate of 140 and I was consulted. There were no card iac symptoms reported. Denied any chest pain. Denied any nausea, vomiting, diaphoresis, PND, orthop griffin, pedal edema, palpitations, or syncope. Denied any fever or chills. The patient has received IV beta-blockers and IV digoxin and converted to sinus rhythm by the time I saw her. Echocardiogram wh ich was done revealed a normal ejection fraction with some mild aortic, tricuspid, and pulmonic insuf ficiency, but no evidence of congestive heart failure. Her left atrial size was normal. There were no clots. Allergies: NONE. Review of Systems: Negative. Social History: Negative. Family History: Noncontributory. Medications: At home include only vitamins. Presently, she is on lisinopril, metoprolol, hydralazin e, Lovenox, antibiotics. Physical Examination: Vital Signs: Stable. Afebrile. Sinus rhythm. HEENT: Negative. Neck: Supple with no bruit. Chest: Clear to auscultation and percussion. Cardiac: Revealed a regular rhythm and rate. No murmurs, gallops, or rubs. Abdomen: Benign. Extremities: Revealed no clubbing, cyanosis, or edema. Diagnostic Data: Basically, her creatinine was normal. Hemoglobin was normal. Platelet count was n ormal. Glucose was 141. Chest x-ray was normal. Impression And Plan: The patient with a hip fracture, normal echocardiogram, relatively speaking, pa roxysmal atrial fibrillation, hypertension. Her atrial fibrillation may be secondary to hypertension and her pain. I think she should be on anticoagulants and a beta-marcia down the road. Considerin g her age, it may be better to put her on low-dose Eliquis 2.5 mg b.i.d. long-term. Continue beta-bl ocker. I agree with her DINO inhibitor for her hypertension control. I agree with hydralazine. We w ill be happy to see her as an outpatient. We will follow her along postoperatively if the need arise sOsbaldo KILLIAN Voice ID: [id number] Report ID: [id number]
[2021-04-22] MEDS: VIT E PO SCH (09:00)
[2021-04-22] MEDS: COPPER PO SCH (09:00)
[2021-04-22] MEDS: [UNRECOGNIZED DRUG - OTHER] PO SCH (09:00)
[2021-04-22] MEDS: VIT C PO SCH (09:00)
[2021-04-22] MEDS: ZINC PO SCH (09:00)
[2021-04-22] MEDS: VIT A PO SCH (09:00)
[2021-04-22] MEDS: ENOXAPARIN 30 MG/0.3 ML SQ SCH ×2 (09:04→21:00)
[2021-04-22] MEDS: lisinopriL 10 MG TAB PO SCH (09:05)
[2021-04-22] MEDS: DOCUSATE NA 100 MG CAP PO SCH ×2 (09:05→21:00)
[2021-04-22] MEDS: METOPROLOL TAR 50 MG TAB PO SCH ×2 (09:05→21:00)
--- NOTE | 2021-04-22 12:39 | P.PN ---
Subjective Date of Service: 04/22/21 Chief Complaint: Right Femoral neck fracture Subjective: No new changes, Tolerating diet (slow prgress with P.T will likely need placement) Physical Examination - Vital Signs Temperature: 98.1 F Blood Pressure: 132/60 Pulse: 61 Respirations: 16 Pulse Ox (%): 100 Assessment & Plan Physician Review: Patient Assessed, Agree with Above Assessment and Plan Physician Review Additional Text: Physical Exam Gen: NAD, AAOx3 HEENT: normal conjunctiva, sclera anicteric CV: regular rate/rhythm, no murmur Pulm: clear bilaterally, nonlabored on RA Abd: soft, NTND Ext: surgical dressing in place over R hip, drain in place, no hematoma palpated : sin in place Problem List R femoral neck fracture s/p mechanical fall; s/p repair 04/19 new diagnosis of Afib with RVR, resolved Hypertension -ortho consulted, s/p repair on 04/19 -afib w/ RVR - pt denies history, did not have pain/palpitations during episode -converted s/p lopressor and dig on day of admission -cardio consulted, continue lopressor, echo done: no significant findings -lovenox ordered per ortho -PT consulted -hypertensive, BP improved with addition of lisinopril on 04/20, does seem to be worse when in pain as well Code: full VTE: lovenox Dispo: anticipate dc in ~2-3 days, will need SNF social studies teacher consulted
[2021-04-22] MEDS ORDERED: POLYETHYL GLY 3350 17 GM/DOSE PO ONE (15:41)
--- NOTE | 2021-04-22 18:09 | P.PN ---
Subjective Date of Service: 04/22/21 Chief Complaint: Right Femoral neck fracture Subjective: Improving (Feeling better, appetite improving, pain more controlled. Was able to stand up with assistance. +Flatus, no BM in several days) Review of Systems 10-point ROS is otherwise unremarkable Physical Examination - Vital Signs Temperature: 98.1 F Blood Pressure: 130/60 Pulse: 72 Respirations: 16 Pulse Ox (%): 99 Assessment & Plan Physician Review Additional Text: Physical Exam Gen: NAD, AAOx3 CV: regular rate/rhythm, no murmur Pulm: clear bilaterally, nonlabored on RA Abd: soft, NTND Ext: surgical dressing in place over R hip, drain in place, no hematoma palpated : sin in place Problem List R femoral neck fracture s/p mechanical fall; s/p repair 04/19 new diagnosis of Afib with RVR, resolved Hypertension -ortho consulted, s/p repair on 04/19 -afib w/ RVR - pt denies history, did not have pain/palpitations during episode -converted s/p lopressor and dig on day of admission -cardio consulted, continue lopressor, echo done: no significant findings, recommend low dose eliquis 2.5mg BID and beta marcia -lovenox ordered per ortho -PT consulted -hypertensive, BP improved with addition of lisinopril on 04/20, does seem to be worse when in pain as well Code: full VTE: lovenox Dispo: anticipate dc in ~2-3 days, will need SNF manager social work consulted Time Spent Managing Pts Care (In Minutes): 35
[2021-04-23] MEDS: HYDRALAZINE HCL 20 MG/ML VIAL IV PRN (05:11)
[2021-04-23 05:51] LABS: Hematocrit 31.5 % (36.0-45.0); MPV 8.7 fL (7.6-11.3)
[2021-04-23 06:02] LABS: BUN Blood Urea Nitrogen 14 mg/dL (7-18); Bicarbonate 30 mmol/L (21-32); Glucose Level 130 mg/dL (74-106); Magnesium 2.1 mg/dL (1.8-2.4); Potassium 4.1 mmol/L (3.5-5.1); Sodium Level 138 mmol/L (136-145)
[2021-04-23] MEDS: VIT C PO SCH (09:00)
[2021-04-23] MEDS: ZINC PO SCH (09:00)
[2021-04-23] MEDS: [UNRECOGNIZED DRUG - OTHER] PO SCH (09:00)
[2021-04-23] MEDS: COPPER PO SCH (09:00)
[2021-04-23] MEDS: VIT E PO SCH (09:00)
[2021-04-23] MEDS: VIT A PO SCH (09:00)
[2021-04-23] MEDS: lisinopriL 10 MG TAB PO SCH (09:03)
[2021-04-23] MEDS: ENOXAPARIN 30 MG/0.3 ML SQ SCH ×2 (09:03→20:34)
[2021-04-23] MEDS: DOCUSATE NA 100 MG CAP PO SCH (09:03)
[2021-04-23] MEDS: METOPROLOL TAR 50 MG TAB PO SCH ×2 (09:03→20:35)
[2021-04-23] MEDS ORDERED: POLYETHYL GLY 3350 17 GM/DOSE PO PRN (15:59)
--- NOTE | 2021-04-23 17:05 | P.PN ---
Subjective Date of Service: 04/23/21 Chief Complaint: Right Femoral neck fracture Subjective: No new changes (not moving much with PT, +flatus, no BM) Review of Systems 10-point ROS is otherwise unremarkable Physical Examination - Vital Signs Temperature: 99.7 F Blood Pressure: 157/70 Pulse: 78 Respirations: 18 Pulse Ox (%): 98 Assessment & Plan Physician Review Additional Text: Physical Exam Gen: NAD, AAOx3 CV: regular rate/rhythm, no murmur Pulm: clear bilaterally, nonlabored on RA Abd: soft, NTND Ext: surgical dressing in place over R hip, drain in place, no hematoma palpated : sin in place Problem List R femoral neck fracture s/p mechanical fall; s/p repair 04/19 new diagnosis of Afib with RVR, resolved Hypertension -ortho consulted, s/p repair on 04/19 -afib w/ RVR - pt denies history, did not have pain/palpitations during episode -converted s/p lopressor and dig on day of admission -cardio consulted, continue lopressor, echo done: no significant findings, recommend low dose eliquis 2.5mg BID and beta marcia -lovenox ordered per ortho -PT consulted -hypertensive, BP improved with addition of lisinopril on 04/20, does seem to be worse when in pain as well Code: full VTE: lovenox Dispo: anticipate dc in ~1-2 days, will need SNF social work job titles consulted Time Spent Managing Pts Care (In Minutes): 35
[2021-04-23] MEDS: SENOSIDES 8.6 MG TAB PO SCH (20:34)
[2021-04-23] MEDS: HYDROCODONE/APAP 5/325 MG TAB PO PRN (20:34)
[2021-04-24] MEDS: MORPHINE 2 MG/ML SYR IV PRN (03:39)
[2021-04-24 05:50] LABS: MPV 8.7 fL (7.6-11.3); RBC Red Blood Cell Count 3.11 M/uL (3.86-4.86)
[2021-04-24] MEDS: SENOSIDES 8.6 MG TAB PO SCH ×2 (08:52→20:59)
[2021-04-24] MEDS: METOPROLOL TAR 50 MG TAB PO SCH ×2 (08:52→20:59)
[2021-04-24] MEDS: lisinopriL 10 MG TAB PO SCH (08:52)
[2021-04-24] MEDS: ENOXAPARIN 30 MG/0.3 ML SQ SCH ×2 (08:52→21:00)
[2021-04-24] MEDS: [UNRECOGNIZED DRUG - OTHER] PO SCH (08:53)
[2021-04-24] MEDS: VIT C PO SCH (08:53)
[2021-04-24] MEDS: VIT A PO SCH (08:53)
[2021-04-24] MEDS: ZINC PO SCH (08:53)
[2021-04-24] MEDS: VIT E PO SCH (08:53)
[2021-04-24] MEDS: COPPER PO SCH (08:53)
--- NOTE | 2021-04-24 15:30 | P.PN ---
Subjective Date of Service: 04/24/21 Chief Complaint: Right Femoral neck fracture Status post right hip hemiarthroplasty. Patient has no complain today. Physical Examination - Vital Signs Temperature: 100.0 F Blood Pressure: 149/65 Pulse: 71 Respirations: 16 Pulse Ox (%): 98 - Physical Exam General: Alert, In no apparent distress HEENT: Mucous membr. moist/pink Neck: JVD not distended Respiratory: Clear to auscultation bilaterally, Normal air movement Cardiovascular: Regular rate/rhythm, Normal S1 S2 Gastrointestinal: Soft and benign, Non-distended Integumentary: No rashes Assessment And Plan Physician Review: Patient Assessed, Agree with Above Assessment and Plan Physician Review Additional Text: Problem List R femoral neck fracture s/p mechanical fall; s/p repair 04/19 new diagnosis of Afib with RVR, resolved Hypertension -s/p hemiarthroplasty on 04/19 -afib w/ RVR - pt denies history,. -converted s/p lopressor and dig on day of admission -cardio consulted, continue lopressor, echo done: no significant findings, normal EF. Cardiology recommend low dose eliquis 2.5mg BID and beta marcia -patient currently on lovenox per ortho -PT -Continue antihypertensives. Code: full VTE: lovenox Dispo: Skilled rehab clinical social work aide assisting with arrangement.
[2021-04-24] MEDS: HYDROCODONE/APAP 5/325 MG TAB PO PRN (20:59)
[2021-04-25] MEDS: MORPHINE 2 MG/ML SYR IV PRN ×2 (00:46→09:23)
[2021-04-25 05:56] LABS: Hematocrit 31.7 % (36.0-45.0)
[2021-04-25] MEDS: VIT E PO SCH (09:00)
[2021-04-25] MEDS: [UNRECOGNIZED DRUG - OTHER] PO SCH (09:00)
[2021-04-25] MEDS: COPPER PO SCH (09:00)
[2021-04-25] MEDS: VIT A PO SCH (09:00)
[2021-04-25] MEDS: ZINC PO SCH (09:00)
[2021-04-25] MEDS: VIT C PO SCH (09:00)
[2021-04-25] MEDS: SENOSIDES 8.6 MG TAB PO SCH ×2 (09:22→20:18)
[2021-04-25] MEDS: ENOXAPARIN 30 MG/0.3 ML SQ SCH ×2 (09:22→20:17)
[2021-04-25] MEDS: lisinopriL 10 MG TAB PO SCH (09:22)
[2021-04-25] MEDS: METOPROLOL TAR 50 MG TAB PO SCH ×2 (09:22→20:18)
--- NOTE | 2021-04-25 14:01 | P.PN ---
Subjective Date of Service: 04/25/21 Chief Complaint: Right Femoral neck fracture Status post right hip hemiarthroplasty. Patient complaining of constipation. She is tolerating physical therapy. Physical Examination - Vital Signs Temperature: 99.1 F Blood Pressure: 170/65 Pulse: 66 Respirations: 17 Pulse Ox (%): 98 - Physical Exam General: In no apparent distress, Oriented x3 HEENT: Mucous membr. moist/pink Neck: JVD not distended Respiratory: Clear to auscultation bilaterally, Normal air movement Cardiovascular: No edema, Regular rate/rhythm, Normal S1 S2 Gastrointestinal: Normal bowel sounds, Soft and benign Musculoskeletal: No swelling Integumentary: No rashes Assessment And Plan Physician Review: Patient Assessed, Agree with Above Assessment and Plan Physician Review Additional Text: Problem List R femoral neck fracture s/p mechanical fall; s/p repair 04/19 new diagnosis of Afib with RVR, resolved Hypertension -s/p hemiarthroplasty on 04/19 -afib w/ RVR -newly diagnosed -converted s/p lopressor and dig on day of admission -seen by cardiology, continue lopressor, echo: no significant findings, normal EF. Cardiology recommend low dose eliquis 2.5mg BID and beta marcia -patient currently on lovenox per ortho -PT -Continue antihypertensives. Code: full VTE: lovenox Dispo: Skilled rehab Awaiting skilled rehab placement.
[2021-04-25] MEDS: HYDROCODONE/APAP 5/325 MG TAB PO PRN (20:18)
[2021-04-25] MEDS: ENSURE ENLIVE 237 ML CAN PO SCH (20:23)
[2021-04-25 21:03] VITALS: O2SAT 98
[2021-04-26] MEDS: MORPHINE 2 MG/ML SYR IV PRN ×2 (02:39→10:18)
[2021-04-26 06:30] LABS: Hematocrit 31.2 % (36.0-45.0)
[2021-04-26] MEDS: VIT E PO SCH (09:00)
[2021-04-26] MEDS: VIT C PO SCH (09:00)
[2021-04-26] MEDS: COPPER PO SCH (09:00)
[2021-04-26] MEDS: [UNRECOGNIZED DRUG - OTHER] PO SCH (09:00)
[2021-04-26] MEDS: ENSURE ENLIVE 237 ML CAN PO SCH ×2 (09:00→21:24)
[2021-04-26] MEDS: ZINC PO SCH (09:00)
[2021-04-26] MEDS: VIT A PO SCH (09:00)
[2021-04-26] MEDS: ENOXAPARIN 30 MG/0.3 ML SQ SCH ×2 (10:22→21:20)
[2021-04-26] MEDS: SENOSIDES 8.6 MG TAB PO SCH ×2 (10:23→21:00)
[2021-04-26] MEDS: METOPROLOL TAR 50 MG TAB PO SCH ×2 (10:23→21:21)
--- NOTE | 2021-04-26 15:17 | P.DS ---
Admission Date: 04/18/21 Discharge Date: 04/26/21 Disposition: TRANSFER TO [facility] Discharge Condition: FAIR Reason for Admission: Right Femoral neck fracture Consultations: Orthopedic-Dr. Hernández. - Problems (1) Right femoral fracture Current Visit: Yes Status: Acute (2) Atrial fibrillation Current Visit: Yes Status: Acute (3) Hypertension Current Visit: Yes Status: Acute Brief History of Present Illness: 85-year-old female with a past medical history significant for osteoarthritis and hypertension presented with complaint of fall. Patient sustained a d isplaced right subcapital femoral neck fracture. Patient hospitalized for further management. Hospital Course: Patient admitted to the medical floor, seen by orthopedic-Dr. Hernández, right hemiarthroplasty performed. Patient monitor in the postop were she experienced rapid atrial fibrillation. She converted to sinus rhythm. Patient seen by cardiology-Dr. Epps and placed on metoprolol. Dr. Epps also recommended long-term anticoagulation. Patient will have Eliquis 2.5 mg twice a day for 28 days, and then continue indefinitely. Patient seen and evaluated by PT. She participated in PT sessions, able to stand by the bedside and took a step. Patient will benefit from skilled rehab. She is clinically stable for transfer to SNF. Vital Signs/Physical Exam: Temp Pulse Resp BP Pulse Ox 97.6 F 83 18 140/65 98 04/26/21 12:00 04/26/21 12:00 04/26/21 12:00 04/26/21 12:00 04/26/21 12:00 General: Alert, In no apparent distress, Oriented x3 HEENT: Mucous membr. moist/pink Neck: JVD not distended Respiratory: Clear to auscultation bilaterally, Normal air movement Cardiovascular: No edema, Regular rate/rhythm Gastrointestinal: Normal bowel sounds, Soft and benign, Non-distended Musculoskeletal: No swelling Integumentary: No rashes Neurological: Normal strength at 5/5 x4 extr Laboratory Data at Discharge: WBC 6.50 K/uL (4.3-10.9) 04/24/21 05:19 Hgb 10.5 g/dL (12.0-15.0) L 04/26/21 05:40 Hct 31.2 % (36.0-45.0) L 04/26/21 05:40 Plt Count 205 K/uL (152-406) 04/24/21 05:19 PT 12.8 SECONDS (9.5-12.5) H 04/19/21 16:02 INR 1.11 04/19/21 16:02 APTT 21.5 SECONDS (24.3-36.9) L 04/19/21 16:02 Sodium 138 mmol/L (136-145) 04/23/21 05:20 Potassium 4.1 mmol/L (3.5-5.1) 04/23/21 05:20 BUN 14 mg/dL (7-18) 04/23/21 05:20 Creatinine 0.40 mg/dL (0.55-1.3) L 04/23/21 05:20 Glucose 130 mg/dL (74-106) H 04/23/21 05:20 Phosphorus 1.9 mg/dL (2.5-4.9) L 04/21/21 06:16 Magnesium 2.1 mg/dL (1.8-2.4) 04/23/21 05:20 Total Bilirubin 0.7 mg/dL (0.2-1.0) 04/18/21 11:47 AST 19 U/L (15-37) 04/18/21 11:47 ALT 23 U/L (12-78) 04/18/21 11:47 Alkaline Phosphatase 80 U/L (45-117) 04/18/21 11:47 Triglycerides 80 mg/dL (<150) 04/18/21 11:47 Cholesterol 264 mg/dL (<200) H 04/18/21 11:47 HDL Cholesterol 67 mg/dL (40-60) H 04/18/21 11:47 Cholesterol/HDL Ratio 3.94 04/18/21 11:47 Home Medications: Vit A/Vit C/Vit E/Zinc/Copper [Icaps Areds Formula Dr Tablet] 2 each PO DAILY 08/14/16 Apixaban [Eliquis] 2.5 mg PO BID #60 tablet 04/26/21 Ensure Enlive 237 ml PO BID can 04/26/21 Hydrocodone 5/APAP 325 [Boelus 5/325] 1 tab PO Q6H PRN #20 tab 04/26/21 Metoprolol Tartrate [Lopressor*] 50 mg PO BID tab 04/26/21 Polyethyl Gly 3350 [Glycolax*] 17 gm PO DAILY PRN udbot 04/26/21 Senosides [Senokot*] 8.6 mg PO BID tab 04/26/21 lisinopriL [Prinivil*] 10 mg PO DAILY tab 04/26/21 New Medications: Apixaban [Eliquis] 2.5 mg PO BID #60 tablet Hydrocodone 5/APAP 325 [Boelus 5/325] 1 tab PO Q6H PRN #20 tab PRN Reason: Pain Diet: AHA Activity: Fall precautions Followup: NONE,NONE [Primary Care Provider] - Clarence Hernández MD [ACTIVE - CAN ADMIT] - (Within 2 weeks for staple removal, and 6 weeks with a repeat x-ray of the right hip.) Time spent managing pt's care (in minutes): 40
[2021-04-26] MEDS ORDERED: MAGNESIUM CITRATE 300 ML BOT PO SCH (16:00)
[2021-04-26] MEDS: lisinopriL 10 MG TAB PO SCH (16:00)
[2021-04-26] MEDS ORDERED: BISACODYL 10 MG RECTAL SUPP PR ONE (16:00)
[2021-04-26 16:01] VITALS: TEMP 98.1
[2021-04-27 02:05] VITALS: BP 160/70
== END 2021-04-27 01:51 | DRG 522 ==
LOC: ER 10:14 → ERHOLD 13:33 → 2ND 19:47
PROVIDERS: ADMIT Hospitalist; ATTEND Hospitalist
PROC: 0SRR0JA Replacement of Right Hip Joint, Femoral Surface with Synthetic Substitute, Uncemented, Open Approach (ICD-10-PCS; principal; 2021-04-19 17:00)
DX: S72.011A Unspecified intracapsular fracture of right femur, initial encounter for closed fracture (principal); W18.30XA Fall on same level, unspecified, initial encounter; Y92.009 Unspecified place in unspecified non-institutional (private) residence as the place of occurrence of the external cause; I48.91 Unspecified atrial fibrillation; I10 Essential (primary) hypertension; Z20.822 Contact with and (suspected) exposure to COVID-19
CPT/HCPCS: 36415; 51702; 71045; 72170; 80048; 80061; 80076; 81003; 83036; 83735; 83880; 84100; 84439; 84443; 84484; 85014; 85018; 85025; 85027; 85610; 85730; 88305; 88311; 93005; 93306; 96365; 96375; 97110; 97116; 97161; 97530; 99285; J0330; J0360; J0690; J1160; J1644; J1650; J2270; J2405; J2704; J2710; J3010; J7120; U0003